=== PATIENT | male | born 1980 | race Caucasian/White ===

== ENCOUNTER 2016-10-26 17:20 | Emergency (ER) | payer SELFPAY | END 2016-10-26 19:25 | disposition left against medical advice (07) | LOC: M ED 17:20 | DX: M25.559 Pain in unspecified hip (principal); M54.9 Dorsalgia, unspecified; Z53.20 Procedure and treatment not carried out because of patient's decision for unspecified reasons ==

== ENCOUNTER 2016-11-10 04:09 | Emergency (ER) | payer OTHER, SELFPAY ==
[2016-11-10] MEDS ORDERED: dexameTHASONE 4 MG/ML 1ML VIAL (J1100) As Ordered ONE (04:27)
[2016-11-10] MEDS ORDERED: KETOROLAC 30 MG/ML VIAL (J1885) As Ordered ONE (04:28)
[2016-11-10] MEDS ORDERED: HYDROmorphone HCL 1 MG/ML SYRINGE (J1170) As Ordered ONE (04:28)
[2016-11-10] MEDS ORDERED: PERCOCET 5MG/325MG TAB As Ordered ONE (05:06)
--- NOTE | 2016-11-10 05:20 | EDDOCDS ---
Nurse's Notes [facility] Name: Owen Sarabia Age: 36 yrs Sex: Male : 1980 Arrival Date: 11/10/2016 Time: 04:09 Bed 5 Private MD: Diagnosis: Sciatica, right side Presentation: 11/10 04:13 Presenting complaint: EMS states: went to get out of bed to go to the bathroom. When he ko2 went to stand up he had pins and needles in right leg and fell forward into night stand hitting shoulder. Suicide/Homicide risk assessment- the patient denies having any suicidal and/or homicidal ideations and does not present with any other emotional, behavioral or mental health complaints. Status: Patient is not a dental service technician or dependent. Transition of care: patient was not received from another setting of care. Care prior to arrival: See EMS report. 04:13 Acuity: JOSE ANGEL Level 4 ko2 04:13 Method Of Arrival: Ambulance ko2 05:17 Adult Sepsis Screening: The patient does not have new or worsening altered mentation. ko2 Patient's respiratory rate is less than 22. Systolic blood pressure is greater than 100. Patient has a qSOFA score of 0- Negative Sepsis Screen. Triage Assessment: 04:18 General: Appears distressed, Behavior is appropriate for age, cooperative. Pain: ko2 Location: back going down right leg Pain currently is 8 out of 10 on a pain scale. HIV screening NA for this visit Offered previously. Neurological: No deficits noted. Respiratory: Airway is patent Respiratory effort is even, unlabored, Respiratory pattern is regular, symmetrical. Derm: Skin is normal. Musculoskeletal: Range of motion intact in all extremities. Historical: - Allergies: PENICILLINS; - Home Meds: 1. none - PMHx: GERD; Hypertension; Pneumothorax; - PSHx: none; - Social history: Smoking status: Cigars No barriers to communication noted, The patient speaks fluent Latvian, Speaks appropriately for age. - Family history: Not pertinent. - : The pt / caregiver states he / she is not on anticoagulants. Home medication list is obtained from the patient. - Exposure Risk Screening:: None identified. Screenin:19 Screening information is obtained from the patient. Screening information is obtained ko2 from the patient. Fall risk: No risks identified. Assistance ADL's: requires no assistance with activities of daily living. Abuse/DV Screen: The patient / caregiver reports he/she is: not in a situation that causes fear, pain or injury. Nutritional screening: No deficits noted. Advance Directives: Currently, there is no health care proxy. There is no active DNR order. There is no living will. There is no Power of Senior Clinical Project Manager. home support is adequate. Assessment: 04:19 General: See triage assessment. ko2 05:16 General: Appears in no apparent distress, comfortable, Behavior is appropriate for age, ko2 cooperative. Pain: Location: back Pain currently is 7 out of 10 on a pain scale. Neurological: Level of Consciousness is awake, alert. Respiratory: Airway is patent Respiratory effort is even, unlabored. Derm: Skin is normal. Vital Signs: 04:19 BP 134 / 92; Pulse 80; Resp 18; Temp 96.9(O); Pulse Ox 96% on R/A; Weight 79.38 kg (R); mdr Height 5 ft. 10 in. (177.80 cm) (R); Pain 8/10; 05:17 BP 125 / 78; Pulse 81; Resp 16; Temp 97.4; Pulse Ox 97% ; ko2 04:19 Body Mass Index 25.11 (79.38 kg, 177.80 cm) mdr Vitals: 05:18 Log In Time N/A - ambulance arrival. ko2 ED Course: 04:10 Patient visited by Minh Zambrano PCA. mdr 04:10 Patient moved to Waiting mdr 04:11 Luly Lebron,RN is Primary Nurse. mdr 04:11 Shanika Diego MD is Attending Physician. fg 04:11 Patient visited by Shanika Diego MD. fg 04:11 Patient moved to 5 mdr 04:15 Triage Initiated ko2 04:20 Patient visited by Minh Zambrano PCA. mdr 04:24 Patient moved to Radiology rissa 04:26 Inserted saline lock: 20 gauge in right forearm The patient tolerated the procedure ko2 well. 05:02 Patient moved to 5 rissa 05:10 [facility] Payment Agreement was scanned into [employer] and attached to record. pm4 05:17 Discontinued IV lock intact, bleeding controlled, pressure dressing applied, No ko2 redness/swelling at site. No procedures done that require assistance. 05:18 The patient / caregiver is instructed regarding the plan of care and ED course. ko2 Administered Medications: 04:37 Drug: Dexamethasone 6 mg [dexamethasone 4 mg/mL injection solution] Route: IV; Rate: ko2 bolus; Site: left forearm; 04:38 Drug: Dilaudid - HYDROmorphone 1 mg [hydromorphone 1 mg/mL injection syringe (1 mL)] ko2 Route: IVP; Site: left forearm; 04:38 Drug: ketorolac 30 mg [ketorolac 30 mg/mL (1 mL) injection solution (1 mL)] Route: IVP; ko2 Site: left forearm; 05:16 Drug: oxyCODONE-acetaminophen 1 tabs [oxycodone-acetaminophen 5 mg-325 mg tablet (1 ko2 tabs)] Route: PO; Order Results: There are currently no results for this order. Outcome: 05:03 Discharge ordered by Provider. fg 05:18 Discharge Assessment: Patient awake, alert and oriented x 3. No cognitive and/or ko2 functional deficits noted. Patient verbalized understanding of disposition instructions. Patient awake and alert. patient administered narcotics - yes. Pt provided with safe discharge. The following High Risk Discharge criteria are identified: None. Discharged to home via wheelchair, with significant other. Condition: stable. Discharge instructions given to patient, significant other, Instructed on discharge instructions, follow up and referral plans. medication usage, Demonstrated understanding of instructions, medications, Pt was receptive of discharge instructions/ teaching. Prescriptions given X 3. No special radiology studies were completed. Property sent home with patient. 05:18 Patient left the ED. ko2 Signatures: Kilo William Kari, RN RN ko2 Shanika Diego MD MD fg Rick, Mitchell, [employer] IN[employer] Huber Salas, Reg Reg pm4 MTDD
--- NOTE | 2016-11-10 05:20 | EDDOCDS ---
Physician Documentation [facility] Name: Owen Sarabia Age: 36 yrs Sex: Male : 1980 Arrival Date: 11/10/2016 Time: 04:09 Bed 5 Private MD: Disposition: 11/10/16 05:03 Discharged to Home/Self Care. Impression: Sciatica, right side. - Condition is Stable. - Discharge Instructions: Sciatica. - Prescriptions for Ibuprofen 600 mg Oral Tablet - take 1 tablet by ORAL route every 8-10 hours As needed take with food; 15 tablet. Percocet 5- 325 mg Oral Tablet - take 1 tablet by ORAL route every 8-10 hours As needed MDD: 4 tabs; 8 tablet. Cyclobenzaprine 5 mg Oral Tablet - take 1 tablet by ORAL route 3 times per day As needed; 10 tablet. - Medication Reconciliation, Local Pharmacy Hours form. - Follow up: Private Physician; When: Call to arrange an appointment; Reason: Continuance of care. - Problem is new. - Symptoms have worsened. Historical: - Allergies: PENICILLINS; - Home Meds: 1. none - PMHx: GERD; Hypertension; Pneumothorax; - PSHx: none; - Social history: Smoking status: Cigars No barriers to communication noted, The patient speaks fluent Wolof, Speaks appropriately for age. - Family history: Not pertinent. - : The pt / caregiver states he / she is not on anticoagulants. Home medication list is obtained from the patient. - Exposure Risk Screening:: None identified. Vital Signs: 11/10 04:19 BP 134 / 92; Pulse 80; Resp 18; Temp 96.9(O); Pulse Ox 96% on R/A; Weight 79.38 kg / mdr 175 lbs (R); Height 5 ft. 10 in. (177.80 cm) (R); Pain 8/10; 05:17 BP 125 / 78; Pulse 81; Resp 16; Temp 97.4; Pulse Ox 97% ; ko2 04:19 Body Mass Index 25.11 (79.38 kg, 177.80 cm) mdr MDM: 04:20 IV Saline Lock ordered. fg 04:20 Dilaudid - HYDROmorphone 1 mg IVP once ordered. fg 04:20 ketorolac 30 mg IVP once ordered. fg 04:20 Dexamethasone 6 mg IV at bolus once ordered. fg 04:21 Spine. Lumbosacral, Complete Ordered. EDMS 05:02 oxyCODONE-acetaminophen 5 mg-325 mg 1 tabs PO once ordered. fg 05:09 Financial registration complete. pm4 05:10 [facility] Payment Agreement was scanned into [employer] and attached to record. pm4 Administered Medications: 04:37 Drug: Dexamethasone 6 mg [dexamethasone 4 mg/mL injection solution] Route: IV; Rate: ko2 bolus; Site: left forearm; 04:38 Drug: Dilaudid - HYDROmorphone 1 mg [hydromorphone 1 mg/mL injection syringe (1 mL)] ko2 Route: IVP; Site: left forearm; 04:38 Drug: ketorolac 30 mg [ketorolac 30 mg/mL (1 mL) injection solution (1 mL)] Route: IVP; ko2 Site: left forearm; 05:16 Drug: oxyCODONE-acetaminophen 1 tabs [oxycodone-acetaminophen 5 mg-325 mg tablet (1 ko2 tabs)] Route: PO; Signatures: Dispatcher [employer] EDMS Luly Lebron RN RN ko2 Shanika Diego MD MD fg Huber Hong, Reg Reg pm4 The chart was reviewed and I authenticate all verbal orders and agree with the evaluation and treatment provided.Attachments: 05:10 [facility] Payment Agreement pm4 MTDD
--- NOTE | 2016-11-10 06:51 | REP ---
Clinical: Back pain . Technique: AP, lateral, bilateral oblique, and coned-down views. Findings: Alignment and lordosis is maintained. The vertebral bodies including transverse process and spinous processes are intact and normal for age. There is no evidence for acute fracture / compression injury or subluxation. No evidence for spondylolysis or spondylolisthesis. No significant degenerative change is noted. Impression: Minimal age-related changes. No acute fracture / compression injury or subluxation. Signed by Kobe Cooley MD 11/10/2016 06:43 A
--- NOTE | 2016-11-12 06:19 | EDDOCDS ---
Physician Documentation [facility] Name: Owen Sarabia Age: 36 yrs Sex: Male : 1980 Arrival Date: 11/10/2016 Time: 04:09 Bed 5 Private MD: Disposition: 11/10/16 05:03 Discharged to Home/Self Care. Impression: Sciatica, right side. - Condition is Stable. - Discharge Instructions: Sciatica. - Prescriptions for Ibuprofen 600 mg Oral Tablet - take 1 tablet by ORAL route every 8-10 hours As needed take with food; 15 tablet. Percocet 5- 325 mg Oral Tablet - take 1 tablet by ORAL route every 8-10 hours As needed MDD: 4 tabs; 8 tablet. Cyclobenzaprine 5 mg Oral Tablet - take 1 tablet by ORAL route 3 times per day As needed; 10 tablet. - Medication Reconciliation, Local Pharmacy Hours form. - Follow up: Private Physician; When: Call to arrange an appointment; Reason: Continuance of care. - Problem is new. - Symptoms have worsened. Historical: - Allergies: PENICILLINS; - Home Meds: 1. none - PMHx: GERD; Hypertension; Pneumothorax; - PSHx: none; - Social history: Smoking status: Cigars No barriers to communication noted, The patient speaks fluent Indonesian, Speaks appropriately for age. - Family history: Not pertinent. - : The pt / caregiver states he / she is not on anticoagulants. Home medication list is obtained from the patient. - Exposure Risk Screening:: None identified. Vital Signs: 11/10 04:19 BP 134 / 92; Pulse 80; Resp 18; Temp 96.9(O); Pulse Ox 96% on R/A; Weight 79.38 kg / mdr 175 lbs (R); Height 5 ft. 10 in. (177.80 cm) (R); Pain 8/10; 05:17 BP 125 / 78; Pulse 81; Resp 16; Temp 97.4; Pulse Ox 97% ; ko2 04:19 Body Mass Index 25.11 (79.38 kg, 177.80 cm) mdr MDM: 04:20 IV Saline Lock ordered. fg 04:20 Dilaudid - HYDROmorphone 1 mg IVP once ordered. fg 04:20 ketorolac 30 mg IVP once ordered. fg 04:20 Dexamethasone 6 mg IV at bolus once ordered. fg 04:21 Spine. Lumbosacral, Complete Ordered. EDMS 05:02 oxyCODONE-acetaminophen 5 mg-325 mg 1 tabs PO once ordered. fg 05:09 Financial registration complete. pm4 05:10 [facility] Payment Agreement was scanned into [employer] and attached to record. pm4 11/11 12:44 T-Sheet-- Draft Copy was scanned into [employer] and attached to record. gb 12:44 PCR was scanned into [employer] and attached to record. gb Administered Medications: 11/10 04:37 Drug: Dexamethasone 6 mg [dexamethasone 4 mg/mL injection solution] Route: IV; Rate: ko2 bolus; Site: left forearm; 04:38 Drug: Dilaudid - HYDROmorphone 1 mg [hydromorphone 1 mg/mL injection syringe (1 mL)] ko2 Route: IVP; Site: left forearm; 04:38 Drug: ketorolac 30 mg [ketorolac 30 mg/mL (1 mL) injection solution (1 mL)] Route: IVP; ko2 Site: left forearm; 05:16 Drug: oxyCODONE-acetaminophen 1 tabs [oxycodone-acetaminophen 5 mg-325 mg tablet (1 ko2 tabs)] Route: PO; Signatures: Dispatcher [employer] EDMS Kayla Leon, Reg Reg gb Luly Lebron,RN RN ko2 Shanika Diego MD MD fg Montondo, Paul, Reg Reg pm4 The chart was reviewed and I authenticate all verbal orders and agree with the evaluation and treatment provided.Attachments: 05:10 [facility] Payment Agreement pm4 11/11 12:44 T-Sheet-- Draft Copy gb Chart Complete MTDD
--- NOTE | 2016-11-12 06:19 | EDDOCDS ---
Nurse's Notes [facility] Name: Owen Sarabia Age: 36 yrs Sex: Male : 1980 Arrival Date: 11/10/2016 Time: 04:09 Bed 5 Private MD: Diagnosis: Sciatica, right side Presentation: 11/10 04:13 Presenting complaint: EMS states: went to get out of bed to go to the bathroom. When he ko2 went to stand up he had pins and needles in right leg and fell forward into night stand hitting shoulder. Suicide/Homicide risk assessment- the patient denies having any suicidal and/or homicidal ideations and does not present with any other emotional, behavioral or mental health complaints. Status: Patient is not a oil well service operator or dependent. Transition of care: patient was not received from another setting of care. Care prior to arrival: See EMS report. 04:13 Acuity: JOSE ANGEL Level 4 ko2 04:13 Method Of Arrival: Ambulance ko2 05:17 Adult Sepsis Screening: The patient does not have new or worsening altered mentation. ko2 Patient's respiratory rate is less than 22. Systolic blood pressure is greater than 100. Patient has a qSOFA score of 0- Negative Sepsis Screen. Triage Assessment: 04:18 General: Appears distressed, Behavior is appropriate for age, cooperative. Pain: ko2 Location: back going down right leg Pain currently is 8 out of 10 on a pain scale. HIV screening NA for this visit Offered previously. Neurological: No deficits noted. Respiratory: Airway is patent Respiratory effort is even, unlabored, Respiratory pattern is regular, symmetrical. Derm: Skin is normal. Musculoskeletal: Range of motion intact in all extremities. Historical: - Allergies: PENICILLINS; - Home Meds: 1. none - PMHx: GERD; Hypertension; Pneumothorax; - PSHx: none; - Social history: Smoking status: Cigars No barriers to communication noted, The patient speaks fluent Turkmen, Speaks appropriately for age. - Family history: Not pertinent. - : The pt / caregiver states he / she is not on anticoagulants. Home medication list is obtained from the patient. - Exposure Risk Screening:: None identified. Screenin:19 Screening information is obtained from the patient. Screening information is obtained ko2 from the patient. Fall risk: No risks identified. Assistance ADL's: requires no assistance with activities of daily living. Abuse/DV Screen: The patient / caregiver reports he/she is: not in a situation that causes fear, pain or injury. Nutritional screening: No deficits noted. Advance Directives: Currently, there is no health care proxy. There is no active DNR order. There is no living will. There is no Power of Groundskeeper Porter. home support is adequate. Assessment: 04:19 General: See triage assessment. ko2 05:16 General: Appears in no apparent distress, comfortable, Behavior is appropriate for age, ko2 cooperative. Pain: Location: back Pain currently is 7 out of 10 on a pain scale. Neurological: Level of Consciousness is awake, alert. Respiratory: Airway is patent Respiratory effort is even, unlabored. Derm: Skin is normal. Vital Signs: 04:19 BP 134 / 92; Pulse 80; Resp 18; Temp 96.9(O); Pulse Ox 96% on R/A; Weight 79.38 kg (R); mdr Height 5 ft. 10 in. (177.80 cm) (R); Pain 8/10; 05:17 BP 125 / 78; Pulse 81; Resp 16; Temp 97.4; Pulse Ox 97% ; ko2 04:19 Body Mass Index 25.11 (79.38 kg, 177.80 cm) mdr Vitals: 05:18 Log In Time N/A - ambulance arrival. ko2 ED Course: 04:10 Patient visited by Minh Zambrano PCA. mdr 04:10 Patient moved to Waiting mdr 04:11 Luly Lebron,RN is Primary Nurse. mdr 04:11 Shanika Diego MD is Attending Physician. fg 04:11 Patient visited by Shanika Diego MD. fg 04:11 Patient moved to 5 mdr 04:15 Triage Initiated ko2 04:20 Patient visited by Minh Zambrano PCA. mdr 04:24 Patient moved to Radiology rissa 04:26 Inserted saline lock: 20 gauge in right forearm The patient tolerated the procedure ko2 well. 05:02 Patient moved to 5 rissa 05:10 [facility] Payment Agreement was scanned into [employer] and attached to record. pm4 05:17 Discontinued IV lock intact, bleeding controlled, pressure dressing applied, No ko2 redness/swelling at site. No procedures done that require assistance. 05:18 The patient / caregiver is instructed regarding the plan of care and ED course. ko2 07:25 Spine. Lumbosacral, Complete Returned. EDMS 11/11 12:44 T-Sheet-- Draft Copy was scanned into [employer] and attached to record. gb 12:44 PCR was scanned into [employer] and attached to record. gb Administered Medications: 11/10 04:37 Drug: Dexamethasone 6 mg [dexamethasone 4 mg/mL injection solution] Route: IV; Rate: ko2 bolus; Site: left forearm; 04:38 Drug: Dilaudid - HYDROmorphone 1 mg [hydromorphone 1 mg/mL injection syringe (1 mL)] ko2 Route: IVP; Site: left forearm; 04:38 Drug: ketorolac 30 mg [ketorolac 30 mg/mL (1 mL) injection solution (1 mL)] Route: IVP; ko2 Site: left forearm; 05:16 Drug: oxyCODONE-acetaminophen 1 tabs [oxycodone-acetaminophen 5 mg-325 mg tablet (1 ko2 tabs)] Route: PO; Order Results: Radiology Order: Spine. Lumbosacral, Complete Test: Spine. Lumbosacral, Complete REASON FOR EXAMINATION: back pain; Clinical: Back pain .; ; Technique: AP, lateral, bilateral oblique, and coned-down views.; ; Findings: Alignment and lordosis is maintained. The vertebral bodies including; transverse process and spinous processes are intact and normal for age. There is; no evidence for acute fracture / compression injury or subluxation. No evidence; for spondylolysis or spondylolisthesis. No significant degenerative change is; noted.; ; Impression:; Minimal age-related changes.; No acute fracture / compression injury or subluxation.; ; ; Signed by; Kobe Cooley MD 11/10/2016 06:43 A; Outcome: 05:03 Discharge ordered by Provider. fg 05:18 Discharge Assessment: Patient awake, alert and oriented x 3. No cognitive and/or ko2 functional deficits noted. Patient verbalized understanding of disposition instructions. Patient awake and alert. patient administered narcotics - yes. Pt provided with safe discharge. The following High Risk Discharge criteria are identified: None. Discharged to home via wheelchair, with significant other. Condition: stable. Discharge instructions given to patient, significant other, Instructed on discharge instructions, follow up and referral plans. medication usage, Demonstrated understanding of instructions, medications, Pt was receptive of discharge instructions/ teaching. Prescriptions given X 3. No special radiology studies were completed. Property sent home with patient. 05:18 Patient left the ED. ko2 Signatures: Dispatcher [employer] EDMS Kilo William Gloria, Reg Reg gb Luly Lebron RN RN ko2 Shanika Diego MD MD fg Rick, Mitchell, PCA PCA mdr Montondo, Paul, Reg Reg pm4 Chart Complete MTDD
--- NOTE | 2016-11-12 06:19 | EDDOCDS ---
Physician Documentation [facility] Name: Owen Sarabia Age: 36 yrs Sex: Male : 1980 Arrival Date: 11/10/2016 Time: 04:09 Bed 5 Private MD: Disposition: 11/10/16 05:03 Discharged to Home/Self Care. Impression: Sciatica, right side. - Condition is Stable. - Discharge Instructions: Sciatica. - Prescriptions for Ibuprofen 600 mg Oral Tablet - take 1 tablet by ORAL route every 8-10 hours As needed take with food; 15 tablet. Percocet 5- 325 mg Oral Tablet - take 1 tablet by ORAL route every 8-10 hours As needed MDD: 4 tabs; 8 tablet. Cyclobenzaprine 5 mg Oral Tablet - take 1 tablet by ORAL route 3 times per day As needed; 10 tablet. - Medication Reconciliation, Local Pharmacy Hours form. - Follow up: Private Physician; When: Call to arrange an appointment; Reason: Continuance of care. - Problem is new. - Symptoms have worsened. Historical: - Allergies: PENICILLINS; - Home Meds: 1. none - PMHx: GERD; Hypertension; Pneumothorax; - PSHx: none; - Social history: Smoking status: Cigars No barriers to communication noted, The patient speaks fluent Turkmen, Speaks appropriately for age. - Family history: Not pertinent. - : The pt / caregiver states he / she is not on anticoagulants. Home medication list is obtained from the patient. - Exposure Risk Screening:: None identified. Vital Signs: 11/10 04:19 BP 134 / 92; Pulse 80; Resp 18; Temp 96.9(O); Pulse Ox 96% on R/A; Weight 79.38 kg / mdr 175 lbs (R); Height 5 ft. 10 in. (177.80 cm) (R); Pain 8/10; 05:17 BP 125 / 78; Pulse 81; Resp 16; Temp 97.4; Pulse Ox 97% ; ko2 04:19 Body Mass Index 25.11 (79.38 kg, 177.80 cm) mdr MDM: 04:20 IV Saline Lock ordered. fg 04:20 Dilaudid - HYDROmorphone 1 mg IVP once ordered. fg 04:20 ketorolac 30 mg IVP once ordered. fg 04:20 Dexamethasone 6 mg IV at bolus once ordered. fg 04:21 Spine. Lumbosacral, Complete Ordered. EDMS 05:02 oxyCODONE-acetaminophen 5 mg-325 mg 1 tabs PO once ordered. fg 05:09 Financial registration complete. pm4 05:10 [facility] Payment Agreement was scanned into [employer] and attached to record. pm4 11/11 12:44 T-Sheet-- Draft Copy was scanned into [employer] and attached to record. gb 12:44 PCR was scanned into [employer] and attached to record. gb Administered Medications: 11/10 04:37 Drug: Dexamethasone 6 mg [dexamethasone 4 mg/mL injection solution] Route: IV; Rate: ko2 bolus; Site: left forearm; 04:38 Drug: Dilaudid - HYDROmorphone 1 mg [hydromorphone 1 mg/mL injection syringe (1 mL)] ko2 Route: IVP; Site: left forearm; 04:38 Drug: ketorolac 30 mg [ketorolac 30 mg/mL (1 mL) injection solution (1 mL)] Route: IVP; ko2 Site: left forearm; 05:16 Drug: oxyCODONE-acetaminophen 1 tabs [oxycodone-acetaminophen 5 mg-325 mg tablet (1 ko2 tabs)] Route: PO; Signatures: Dispatcher [employer] EDMS Kayla Leon, Reg Reg gb Luly Lebron,RN RN ko2 Shanika Diego MD MD fg Montondo, Paul, Reg Reg pm4 The chart was reviewed and I authenticate all verbal orders and agree with the evaluation and treatment provided.Attachments: 05:10 [facility] Payment Agreement pm4 11/11 12:44 T-Sheet-- Draft Copy gb Chart Complete MTDD
== END 2016-11-10 05:18 | disposition home or self-care (01) ==
LOC: M ED 04:09
DX: M54.31 Sciatica, right side (principal); K21.9 Gastro-esophageal reflux disease without esophagitis; I10 Essential (primary) hypertension; Z88.0 Allergy status to penicillin

== ENCOUNTER 2017-10-24 22:07 | Emergency (ER) | payer SELFPAY, OTHER ==
[2017-10-25] MEDS: TROPICAMIDE 1% OPHTH SOLN 2ML OU
[2017-10-25] MEDS: PHENYLEPHRINE 2.5% OPHTH SOL 2ML OU
[2017-10-25] MEDS: LABETALOL 100 MG TAB PO (02:07)
[2017-10-25 02:23] LABS: HEMATOCRIT 47.1 % (42.0-52.0); HEMOGLOBIN 16.5 g/dl (14.0-18.0); MEAN CORPUSCULAR HEMOGLOBIN 30.7 pg (27.0-33.0); MEAN CORPUSCULAR VOLUME 87.7 fl (80.0-96.0); RED BLOOD COUNT 5.37 10^6/uL (4.30-6.10); WHITE BLOOD COUNT 16.2 10^3/uL (4.0-10.0)
[2017-10-25 02:24] LABS: BASO % 0.6 % (0.0-1.0); EOS % 1.4 % (0.0-3.0); IMMATURE GRANULOCYTE % 0.4 % (0-0); LYMPH # 3.9 10^3/uL (1.5-4.5); MONO % 6.7 % (0.0-5.0); NEUTROPHILS # 10.8 10^3/uL (1.8-7.7); NEUTROPHILS % 66.9 % (36.0-66.0); PLATELET COUNT, AUTOMATED 283 10^3/uL (150-450); RED CELL DISTRIBUTION WIDTH 13.2 % (11.5-14.5)
[2017-10-25 02:25] LABS: BASO # 0.1 10^3/uL (0.0-0.2); EOS # 0.2 10^3/uL (0.0-0.50); IMMATURE GRANULOCYTE # 0.1 10^3/uL (0-0); MONO # 1.1 10^3/uL (0.0-0.8); POSITIVE DIFF 0
== END 2017-10-25 02:29 | disposition home or self-care (01) ==
LOC: M ED 22:07
DX: H53.9 Unspecified visual disturbance (principal); I10 Essential (primary) hypertension; H34.239 Retinal artery branch occlusion, unspecified eye; Z79.899 Other long term (current) drug therapy; Z88.0 Allergy status to penicillin; F17.210 Nicotine dependence, cigarettes, uncomplicated
CPT/HCPCS: 85025

== ENCOUNTER 2018-09-11 11:48 | Emergency (ER) | payer OTHER, SELFPAY ==
[2018-09-11] MEDS: ONDANSETRON 4 MG ORAL DISINTEGRATING TAB (Q0162 PER 1MG) PO (12:54)
[2018-09-11] MEDS: PERCOCET 5MG/325MG TAB PO (12:54)
== END 2018-09-11 14:51 | disposition home or self-care (01) ==
LOC: M ED 11:48
DX: S16.1XXA Strain of muscle, fascia and tendon at neck level, initial encounter (principal); S40.022A Contusion of left upper arm, initial encounter; S00.81XA Abrasion of other part of head, initial encounter; W13.2XXA Fall from, out of or through roof, initial encounter; Y92.89 Other specified places as the place of occurrence of the external cause; Y99.0 Civilian activity done for income or pay; Z88.0 Allergy status to penicillin
CPT/HCPCS: Q0162

== ENCOUNTER 2021-05-30 10:00 | Emergency (ER) | payer OTHER ==
[~2021-05-30] VITALS: Ht 177.8 cm; Wt 85.9 kg
[~2021-05-30 10:00] MED LIST: CYCL-707 PO; LABE100T4 PO; NAPR-837 PO
[2021-05-30 10:01] VITALS: BP 120/79
== END 2021-05-30 11:01 | disposition left against medical advice (07) ==
LOC: M ED 10:00
DX: Z53.21 Procedure and treatment not carried out due to patient leaving prior to being seen by health care provider (principal)